=== PATIENT | male | born 1960 | race Caucasian/White ===

== ENCOUNTER → 2024-12-28 14:42 | Outpatient (REF) | payer MEDICARE, OTHER, SELFPAY | LOC: MRI 14:42 | PROVIDERS: ATTENDING PHYSICIAN Internal Medicine Gastroenterology; FAMILY PHYSICIAN Nurse Practitioner Adult Health | DX: K76.0 Fatty (change of) liver, not elsewhere classified (principal) | CPT/HCPCS: 74183; 76391; A9585 ==